=== PATIENT | female | born 1990 | race African-American/Black ===

== ENCOUNTER 2024-01-03 17:57 | Inpatient (IN) | payer MEDICAID ==
[~2024-01-03] VITALS: Ht 157.5 cm; Wt 50.0 kg
[2024-01-03 19:24] LABS: BASOPHILS % (AUTO) 0.4 % (0.0-2.0); EOSINOPHILS % (AUTO) 0.8 % (1.0-6.0); HEMATOCRIT 41.6 % (36-46); HEMOGLOBIN 13.8 g/dL (12.0-16.0); LYMPHOCYTES # (AUTO) 1.7 K/uL (1.0-4.8); LYMPHOCYTES % (AUTO) 21.7 % (22.0-44.0); MEAN CORPUSCULAR HEMOGLOBIN 29.1 pg (26.0-34.0); MEAN CORPUSCULAR HGB CONC 33.3 G/dL (31.0-37.0); MEAN CORPUSCULAR VOLUME 87 fL (80-100); MONOCYTES # (AUTO) 0.2 K/uL (0.1-1.0); MONOCYTES % (AUTO) 2.4 % (2.0-9.0); NEUTROPHILS # (AUTO) 5.8 K/uL (1.8-7.7); NEUTROPHILS % (AUTO) 74.7 % (40.0-70.0); PLATELET COUNT (AUTO) 351 K/uL (150-450); RED BLOOD CELL COUNT(AUTO) 4.77 MIL/uL (4.00-5.20); RED CELL DISTRIBUTION WIDTH 12.8 % (11.5-14.5); WHITE BLOOD COUNT (AUTO) 7.8 K/uL (4.5-11.0)
[2024-01-03 19:30] LABS: ANION GAP 9 mmol/L (8-16); CALCIUM, TOTAL 8.6 mg/dL (8.8-10.5); CARBON DIOXIDE 28 mmol/L (22-29); CHLORIDE 92 mmol/L (98-107); CREATININE 1.56 mg/dL (0.60-1.30); GLOMERULAR FILTR. RATE CALC 39 mL/min (>60); GLUCOSE,RANDOM 108 mg/dL (70-110); POTASSIUM 3.4 mmol/L (3.5-5.1); SODIUM SERUM 129 mmol/L (136-145); UREA NITROGEN, BLOOD 24 mg/dL (7-18)
[2024-01-03 19:35] LABS: COVID AG,FIA SOURCE NASAL SWAB
[2024-01-03 19:44] LABS: ALCOHOL, BLOOD (SERUM) < 3 mg/dL (0-10)
[2024-01-03 19:53] LABS: SARS-COV2 (COVID) ANTIGEN,FIA Negative (Negative)
[2024-01-03] MEDS: DiphenhydrAMINE HCL 25 MG CAPSULE PO ONE (20:54)
[2024-01-03] MEDS: FAMOTIDINE 20 MG TABLET PO ONE (20:55)
[2024-01-03] MEDS: HALOPERIDOL 5 MG TABLET PO ONE (21:23)
[2024-01-03] MEDS: POTASSIUM CHLORIDE 20 MEQ ER TABLET PO ONE (22:09)
[2024-01-03] MEDS ORDERED: ZOLPIDEM TARTRATE 10 MG TABLET PO PRN (23:45)
[2024-01-04 03:11] VITALS: O2SAT 99
[2024-01-04 03:52] VITALS: BP 110/66; PULSE 60; RESP 18; TEMP 98; O2SAT 100
[2024-01-04 08:26] VITALS: BP 121/79; PULSE 82; RESP 16; TEMP 97.6; O2SAT 98
[2024-01-04] MEDS: SERTRALINE HCL 50 MG TABLET PO SCH (10:41)
[2024-01-04 21:18] VITALS: BP 112/67; PULSE 82; RESP 18; TEMP 97.9; O2SAT 98
[2024-01-05 08:10] VITALS: BP 110/66; PULSE 79; RESP 16; TEMP 97.8; O2SAT 95
[2024-01-05] MEDS: RisperiDONE 2 MG TABLET PO SCH (09:43)
[2024-01-05 20:00] VITALS: RESP 16
[2024-01-06 09:44] VITALS: BP 104/64; PULSE 80; RESP 16; TEMP 98.4; O2SAT 99
[2024-01-06 10:23] LABS: ANION GAP 8 mmol/L (8-16); CALCIUM, TOTAL 8.5 mg/dL (8.8-10.5); CARBON DIOXIDE 29 mmol/L (22-29); CHLORIDE 100 mmol/L (98-107); CREATININE 0.71 mg/dL (0.60-1.30); GLOMERULAR FILTR. RATE CALC > 60 mL/min (>60); GLUCOSE,RANDOM 98 mg/dL (70-110); POTASSIUM 3.7 mmol/L (3.5-5.1); SODIUM SERUM 137 mmol/L (136-145); UREA NITROGEN, BLOOD 17 mg/dL (7-18)
[2024-01-06 20:05] VITALS: BP 104/61; PULSE 88; RESP 18; TEMP 98.6; O2SAT 98
[2024-01-07 08:28] VITALS: BP 95/55; PULSE 80; RESP 17; TEMP 98.4; O2SAT 99
[2024-01-07 20:03] VITALS: BP 103/63; PULSE 86; RESP 16; TEMP 97.8; O2SAT 98
[2024-01-08 08:11] VITALS: BP 112/62; PULSE 79; RESP 16; TEMP 97.6; O2SAT 98
[2024-01-08 20:00] VITALS: BP 116/68; PULSE 90; RESP 16; TEMP 97.3; O2SAT 99
[2024-01-09] MEDS: NICOTINE 21 MG/24 HOUR PATCH TD SCH (08:03)
[2024-01-09 08:15] VITALS: RESP 16
[2024-01-09] MEDS: SERTRALINE HCL 50 MG TABLET PO ONE (08:48)
[2024-01-09] MEDS ORDERED: RisperiDONE ER SUSPENSION 125 MG/0.35 ML PRE-FILLED SYRINGE SQ SCH (09:00)
[2024-01-09] MEDS ORDERED: SERTRALINE HCL 50 MG TABLET PO SCH (09:00)
[2024-01-09] MEDS: LORazepam 2 MG TABLET PO PRN (13:06)
[2024-01-09] MEDS: HALOPERIDOL 5 MG TABLET PO PRN (15:30)
[2024-01-09 20:04] VITALS: BP 106/70; PULSE 112; RESP 20; TEMP 98.7; O2SAT 99
[2024-01-10] MEDS: SERTRALINE HCL 100 MG TABLET PO SCH (08:03)
[2024-01-10 08:09] VITALS: BP 100/60; PULSE 81; RESP 16; TEMP 97.6; O2SAT 97
[2024-01-10] MEDS: RisperiDONE ER SUSPENSION 125 MG/0.35 ML PRE-FILLED SYRINGE SQ SCH (09:02)
[2024-01-10 20:00] VITALS: RESP 16
[2024-01-11 08:26] VITALS: RESP 16
[2024-01-11] MEDS ORDERED: RISP125S SQ (09:34)
[2024-01-11] MEDS ORDERED: SERT-440 PO (09:34)
== END 2024-01-11 12:30 | disposition home or self-care (01) | DRG 750 ==
LOC: EMS 17:57 → B3A 01-04 02:34
PROVIDERS: ADMIT Psychiatry & Neurology Psychiatry; ATTEND Psychiatry & Neurology Psychiatry
PROC: GZHZZZZ Group Psychotherapy (ICD-10-PCS; principal; 2024-01-04)
PROC: GZ51ZZZ Individual Psychotherapy, Behavioral (ICD-10-PCS; 2024-01-04)
DX: F25.1 Schizoaffective disorder, depressive type (principal); E87.1 Hypo-osmolality and hyponatremia; R45.851 Suicidal ideations; E87.6 Hypokalemia; J45.909 Unspecified asthma, uncomplicated; Z20.822 Contact with and (suspected) exposure to COVID-19; F15.10 Other stimulant abuse, uncomplicated; Z59.00 Homelessness unspecified; G47.00 Insomnia, unspecified; Z88.2 Allergy status to sulfonamides; Z91.148 Patient's other noncompliance with medication regimen for other reason; Z79.899 Other long term (current) drug therapy
CPT/HCPCS: 80048; 84703; 85025; 99285; G0480

== ENCOUNTER 2024-01-23 07:53 | Inpatient (IN) | payer MEDICAID ==
[~2024-01-23] VITALS: Ht 157.5 cm; Wt 59.1 kg
[~2024-01-23 07:53] MED LIST: RISP125S SQ; SERT-440 PO
[2024-01-23] MEDS: LORazepam 2 MG/ML VIAL IM ONE (08:20)
[2024-01-23] MEDS: DiphenhydrAMINE HCL 50 MG/ML VIAL IM ONE (08:20)
[2024-01-23] MEDS: HALOPERIDOL LACTATE 5 MG/ML VIAL IM ONE (08:21)
[2024-01-23 08:37] LABS: BASOPHILS % (AUTO) 0.4 % (0.0-2.0); EOSINOPHILS % (AUTO) 1.8 % (1.0-6.0); HEMATOCRIT 36.2 % (36-46); LYMPHOCYTES # (AUTO) 1.3 K/uL (1.0-4.8); LYMPHOCYTES % (AUTO) 17.1 % (22.0-44.0); MEAN CORPUSCULAR HEMOGLOBIN 28.8 pg (26.0-34.0); MEAN CORPUSCULAR HGB CONC 33.1 G/dL (31.0-37.0); MEAN CORPUSCULAR VOLUME 87 fL (80-100); MONOCYTES # (AUTO) 0.4 K/uL (0.1-1.0); MONOCYTES % (AUTO) 5.3 % (2.0-9.0); NEUTROPHILS # (AUTO) 5.6 K/uL (1.8-7.7); NEUTROPHILS % (AUTO) 75.4 % (40.0-70.0); PLATELET COUNT (AUTO) 343 K/uL (150-450); RED BLOOD CELL COUNT(AUTO) 4.16 MIL/uL (4.00-5.20); RED CELL DISTRIBUTION WIDTH 13.4 % (11.5-14.5); WHITE BLOOD COUNT (AUTO) 7.4 K/uL (4.5-11.0)
[2024-01-23 08:46] LABS: ANION GAP 8 mmol/L (8-16); CARBON DIOXIDE 29 mmol/L (22-29); CHLORIDE 104 mmol/L (98-107); CREATININE 0.82 mg/dL (0.60-1.30); GLOMERULAR FILTR. RATE CALC > 60 mL/min (>60); GLUCOSE,RANDOM 97 mg/dL (70-110); POTASSIUM 3.9 mmol/L (3.5-5.1); SODIUM SERUM 141 mmol/L (136-145); UREA NITROGEN, BLOOD 15 mg/dL (7-18)
[2024-01-23 08:50] LABS: ALCOHOL, BLOOD (SERUM) < 3 mg/dL (0-10)
[2024-01-23 09:00] LABS: HCG,QUANTITATIVE < 1 mIU/mL (0-6)
[2024-01-23 10:01] LABS: COVID AG,FIA SOURCE NPH
[2024-01-23 10:33] LABS: SARS-COV2 (COVID) ANTIGEN,FIA Negative (Negative)
[2024-01-23] MEDS ORDERED: HALOPERIDOL 5 MG TABLET PO PRN (10:45)
[2024-01-23] MEDS ORDERED: LOPERAMIDE HCL 2 MG CAPSULE PO PRN (10:45)
[2024-01-23] MEDS ORDERED: ZOLPIDEM TARTRATE 10 MG TABLET PO PRN (10:45)
[2024-01-23] MEDS ORDERED: MAGNESIUM HYDROXIDE SUSPENSION 30 ML UDCUP PO PRN (10:45)
[2024-01-23] MEDS ORDERED: MAG HYDROX/ALUMINUM HYD/SIMETH ES 30 ML SUSPENSION UDCUP PO PRN (10:45)
[2024-01-23] MEDS ORDERED: ACETAMINOPHEN 325 MG TABLET PO PRN (10:45)
[2024-01-23 14:18] VITALS: O2SAT 97
[2024-01-23] MEDS ORDERED: ALBUTEROL SULFATE HFA 90 MCG/PUFF 8 GM INHALER IH PRN (19:30)
[2024-01-23 20:00] VITALS: BP 90/54; PULSE 71; RESP 16; TEMP 97.7; O2SAT 97
[2024-01-23 23:02] VITALS: BP 107/68; PULSE 81; RESP 16; TEMP 97.5; O2SAT 97
[2024-01-24] MEDS ORDERED: PNEUMOCOCCAL VACCINE POLYVALENT 0.5 ML SYRINGE [PPSV23] IM. ONE (03:00)
[2024-01-24 08:41] VITALS: BP 95/55; PULSE 80; RESP 17; TEMP 97.9; O2SAT 100
[2024-01-24 10:00] VITALS: BP 113/72; PULSE 94; RESP 17
[2024-01-24] MEDS: LORazepam 2 MG TABLET PO PRN (10:03)
[2024-01-24] MEDS: RisperiDONE 2 MG TABLET PO SCH (10:03)
[2024-01-24 20:37] VITALS: BP 113/74; PULSE 80; RESP 17; TEMP 97.7; O2SAT 96
[2024-01-25 08:47] VITALS: BP 111/69; PULSE 82; RESP 17; TEMP 97.2; O2SAT 96
[2024-01-25] MEDS: SERTRALINE HCL 100 MG TABLET PO SCH (08:57)
[2024-01-25] MEDS ORDERED: RisperiDONE 2 MG TABLET PO SCH ×2 (09:00)
[2024-01-25 20:14] VITALS: BP 120/82; PULSE 98; RESP 18; TEMP 98; O2SAT 100
[2024-01-25] MEDS: ETHYL ALCOHOL 62% ANTISEPTIC NASAL SANITIZER 0.6 ML AMPUL NASAL SCH (21:12)
[2024-01-25] MEDS: CHLORHEXIDINE GLUCONATE 2% TOWELETTE [2'S/6'S] TP SCH (21:12)
[2024-01-26 08:20] VITALS: BP 100/64; PULSE 71; RESP 17; TEMP 97.5; O2SAT 98
[2024-01-26 20:45] VITALS: BP 108/70; PULSE 74; RESP 16; TEMP 97.6; O2SAT 97
[2024-01-27 08:26] VITALS: BP 121/70; PULSE 94; RESP 17; TEMP 97.4; O2SAT 96
[2024-02-07] MEDS ORDERED: RisperiDONE ER SUSPENSION 125 MG/0.35 ML PRE-FILLED SYRINGE SQ SCH (09:00)
== END 2024-01-27 15:55 | disposition left against medical advice (07) | DRG 750 ==
LOC: EMS 07:53 → B2S 13:39
PROVIDERS: ADMIT Psychiatry & Neurology Psychiatry; ATTEND Psychiatry & Neurology Psychiatry
PROC: GZHZZZZ Group Psychotherapy (ICD-10-PCS; principal; 2024-01-24)
PROC: GZ58ZZZ Individual Psychotherapy, Cognitive-Behavioral (ICD-10-PCS; 2024-01-24)
PROC: GZ56ZZZ Individual Psychotherapy, Supportive (ICD-10-PCS; 2024-01-24)
DX: F25.1 Schizoaffective disorder, depressive type (principal); R45.851 Suicidal ideations; Z91.148 Patient's other noncompliance with medication regimen for other reason; F41.0 Panic disorder [episodic paroxysmal anxiety]; G47.00 Insomnia, unspecified; Z20.822 Contact with and (suspected) exposure to COVID-19; Z53.29 Procedure and treatment not carried out because of patient's decision for other reasons; I10 Essential (primary) hypertension; F11.10 Opioid abuse, uncomplicated; F15.10 Other stimulant abuse, uncomplicated; J45.909 Unspecified asthma, uncomplicated; Z88.2 Allergy status to sulfonamides; Z59.00 Homelessness unspecified
CPT/HCPCS: 80048; 84702; 85025; 87081; 99285; G0480; J1200; J1630; J2060